=== PATIENT | male | born 1975 | race Caucasian/White ===

== ENCOUNTER → 2017-09-18 | Outpatient (CLI) | payer OTHER | END | disposition home or self-care (01) | LOC: PCVCIMAG 16:19 | DX: E78.5 Hyperlipidemia, unspecified (principal); R06.09 Other forms of dyspnea; R07.89 Other chest pain; Z82.49 Family history of ischemic heart disease and other diseases of the circulatory system | CPT/HCPCS: 93325; 93351 ==